=== PATIENT | male | born 1975 | race Hispanic/Latino ===

== ENCOUNTER 2019-11-30 08:27 | Emergency (ER) | payer OTHER ==
[2019-11-30] MEDS ORDERED: IBUPROFEN 600 MG TABLET ONE (09:10)
== END 2019-11-30 10:00 | disposition home or self-care (01) ==
LOC: EDH 08:27
DX: J09.X2 Influenza due to identified novel influenza A virus with other respiratory manifestations (principal); E11.9 Type 2 diabetes mellitus without complications; I10 Essential (primary) hypertension; Z72.0 Tobacco use
CPT/HCPCS: 71045; 84484; 87804; 93005